=== PATIENT | female | born 1935 | race Caucasian/White ===

== ENCOUNTER 2021-12-29 12:06 | Emergency (ER) | payer MEDICARE, SELFPAY ==
--- NOTE | ~2021-12-29 | XR_ITS ---
EXAMINATION: XR chest 1V portable DATE: 12/29/2021 12:47 INDICATION: Atrial fibrillation TECHNIQUE: frontal view of the chest was obtained. COMPARISON: Chest radiograph dated 08/19/2007 FINDINGS: Cardiomegaly. Diffuse increased interstitial pattern in the bilateral mid and lower lung zones which could represent mild pulmonary edema. Linear atelectasis/scarring in the left midlung zone. No pleura l effusion or pneumothorax. IMPRESSION: 1. Cardiomegaly with mild increased interstitial pattern suggesting mild pulmonary edema. Reviewed, dictated and finalized at location B. IMPRESSION: 1. Cardiomegaly with mild increased interstitial pattern suggesting mild pulmon raymond edema.
[2021-12-29 12:14] VITALS: BP 156/112; PULSE 186; RESP 18; TEMP 36.9; O2SAT 99
[2021-12-29 12:34] LABS: Basophils Absolute Auto 0.1 K/mm3 (0.0-0.1); Basophils Percent Auto 0.6 % (0.2-1.2); Eosinophils Absolute Auto 0.2 K/mm3 (0-0.3); Eosinophils Percent Auto 2.5 % (0-4.4); Hematocrit 50.1 % (37.0-47.0); Hemoglobin 16.7 g/dL (12.0-15.0); Immature Granulocyte Absolute 0.02 K/mm3 (0.00-0.031); Immature Granulocyte Percent A 0.3 % (0-0.5); Lymphocytes Absolute Auto 3.41 K/mm3 (0.9-3.2); Lymphocytes Percent Auto 43.4 % (18.3-44.2); Mean Corpuscular HGB Conc 33.3 g/dl (32-36); Mean Corpuscular Hemoglobin 30.8 pg (26-34); Mean Corpuscular Volume 92.3 fl (80-100); Mean Platelet Volume 9.3 fl (7.4-10.4); Monocytes Absolute Auto 0.6 K/mm3 (0.1-0.6); Neutrophils Absolute Auto 3.5 K/mm3 (1.3-6.7); Neutrophils Percent Auto 45.2 % (45.5-73.1); Platelet Count Result 192 k/mm3 (150-375); Red Blood Count 5.43 M/mm3 (4.2-5.4); White Blood Count 7.9 K/mm3 (4.5-10.0)
[2021-12-29] MEDS: dilTIAZem HCl INJ 25 MG/5 ML VIAL 20 MG IV PUSH (12:41)
[2021-12-29 12:46] VITALS: BP 133/78; PULSE 107
[2021-12-29 12:46] LABS: Alanine Aminotransferase 14 U/L (6-35); Albumin Level 4.6 g/dL (3.5-5.1); Alkaline Phosphatase 83 U/L (38-126); Anion Gap 8 mmol/L (8-16); Aspartate Amino Transferase 26 U/L (14-36); Bilirubin,Total 1.1 mg/dL (0.2-1.3); Blood Urea Nitrogen 15 mg/dL (7-17); Calcium 10.4 mg/dL (8.4-10.2); Carbon Dioxide 24 mmol/L (22-30); Chloride 106 mmol/L (98-107); Estimated CRCL calculation 48 ml/min; Estimated Glomerular Filt Rate > 60; Glucose 145 mg/dL (65-110); Potassium 4.4 mmol/L (3.4-5.0); Sodium 138 mmol/L (137-145)
[2021-12-29] MEDS: dilTIAZem 100 MG/100 ML 100 MG/100 ML BAG 10 MG IV CONT (12:46)
[2021-12-29 12:50] VITALS: BP 133/78; PULSE 75; RESP 17; O2SAT 97
[2021-12-29 13:36] LABS: Magnesium 1.7 mg/dL (1.6-2.3)
--- NOTE | 2021-12-29 13:36 | ED.ARRPALP ---
HPI - Arrhythmia/Palpitations General Chief Complaint: Arrhythmia/Palpitations Stated Complaint: Elevated HR Time Seen by Provider: 12/29/21 12:19 Source: patient, RN notes reviewed and old records reviewed Mode of arrival: ambulatory Limitations: no limitations History of Present Illness HPI narrative: This is an 86 year old female with history of chronic atrial fibrillation, hemorrhagic CVA, chronic kidney disease who presents for evaluation of rapid heart rate. PAtient states she went to get left cataract surgery today, and she was found to be tachycardic and hypertensive. She states she has known atrial fibrillation . She states she feels fine. She denies chest pain, sob, dizziness, nasuea, vomiting. She is upset that she was unable to get her surgery today. She has not seen a forklift picker in years . She reports Dr. Luo was her forklift picker until his office did not except her insurance. Her primary care provider has been monitoring her heart. She takes aspirin. She does not take any other anticoagulation because she states she had a stroke in 2013 on Xarelto. Related Data Home Medications Medication Instructions Recorded Confirmed lancets #50 ea 07/10/19 Allergies Allergy/AdvReac Type Severity Reaction Status Date / Time albuterol Allergy Unknown unknown Verified 12/29/21 12:16 levalbuterol Allergy Unknown RESPIRATORY Verified 12/29/21 12:16 DISTRESS, CARDIAC DYSRHYTHMIAS Review of Systems Review of Systems: All systems reviewed & are unremarkable except as noted in HPI and below Constitutional: Constitutional: Denies chills, Denies fatigue and Denies fever(s) ENT: Denies nasal congestion and Denies sore throat Cardiovascular: Cardiovascular: Denies chest pain and Denies radiating jaw, neck or arm pain Respiratory: Respiratory: Denies chest congestion and Denies cough Gastrointestinal: Gastrointestinal: Denies abdominal pain, Denies bloating, Denies nausea and Denies vomiting Neurologic: Denies dizziness PMFSH Past Medical History Medical History (Updated 12/29/21 @ 17:32 by DARÍO Diaz) CVA (cerebral vascular accident) Hemorrhagic cerebrovascular accident (CVA) Hypothyroidism (acquired) Type 2 diabetes mellitus with renal manifestations, controlled Urinary incontinence Surgical History Surgical History H/O cardiac catheterization H/O thyroidectomy Hx of cholecystectomy Social History Social History Smoking status: Never smoker Second hand tobacco smoke exposure: No Exam Const: General: alert Nutritional Appearance: well nourished Orientation/consciousness: patient oriented x3 HENMT: Head: normal to inspection Throat: posterior oropharynx normal Eyes: Conjunctivae: conjunctivae normal EOM: EOMs intact bilaterally Resp: Effort & Inspection: normal respiratory effort Auscultation: clear to auscultation bilaterally Cardio: Rate: tachycardic Rhythm: abnormal rhythm Heart sounds: no murmurs GI: GI Palp: Yes Soft to palpation, No Tenderness to palpation present (GI), No Guarding due to palpation present (GI) and No Rigid due to palpation Auscultation: normal bowel sounds Back/Spine/Pelvis: Back: no CVA tenderness Skin: General skin exam: normal color Rashes: no rashes Neuro: General: patient oriented x3 and moves all extremities Extrem: General: no pedal edema Psych: Mental Status: mental status grossly normal Course Reevaluation(s) Reevaluation #1: PAtient's HR has improved with diltiazem. I discussed with patient and family that she will be admitted overnight for cardiac evaluation. She is agreeable. I spoke with Kadi Wilkins with heart care [facility] who agrees with consult. I spoke with Patricia ZEPEDA with hospitalist and she accepts to IMU. Date: 12/29/21 Time: 14:30 Vital Signs Vital signs: Vital Sign
[2021-12-29 13:48] LABS: NT Pro B Type Natriuretic Pept 957 pg/mL (5-100); Troponin I < 0.012 ng/mL (0.000-0.034)
[2021-12-29 13:52] VITALS: BP 128/70; PULSE 63
[2021-12-29 14:34] VITALS: BP 120/74; PULSE 60; RESP 10; O2SAT 97
--- NOTE | 2021-12-29 15:06 | PM.IMHP ---
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 Patient reports that she takes carvedilol for rate control and that she recently had this dose increased and she has been compliant with taking her medication daily and did take it this morning. Patient is a prior patient of Dr. Luo to follow for Cardiology, however at 1 point he no longer to current insurance so she has just been following with her primary care physician for management of her cardiac medications. In the emergency room she was evaluated and labs were all unremarkable including magnesium of 1.7 and a negative troponin. She was started on Cardizem drip. She is being admitted to hospitalist service at this time for further evaluation and management. [facility]iology service has been [facility]. At the time of my assessment patient denies any chest pain, dyspnea, palpitations, nausea, vomiting, diarrhea. She appears to be comfortable without any signs of distress. Review of Systems Review of Systems: All systems reviewed & are unremarkable except as noted in HPI and below PMFSH Past Medical History Medical History (Updated 12/29/21 @ 15:43 by DARÍO Diaz) CVA (cerebral vascular accident) Hemorrhagic cerebrovascular accident (CVA) Hypothyroidism (acquired) Type 2 diabetes mellitus with renal manifestations, controlled Urinary incontinence Surgical History Surgical History H/O cardiac catheterization H/O thyroidectomy Hx of cholecystectomy Social History Social History Smoking status: Never smoker Second hand tobacco smoke exposure: No Meds Home Medications and Allergies Home Medications Medication Instructions Recorded Confirmed Type lancets #50 ea 07/10/19 History levothyroxine 100 mcg tablet 100 mcg PO DAILY #90 tabs 01/03/21 Rx oxybutynin chloride 10 mg 10 mg PO DAILY #90 tabs 01/20/21 Rx tablet,extended release 24 hr blood sugar diagnostic #100 ea 03/07/21 Rx lisinopril 10 mg tablet 10 mg PO DAILY #90 tabs 03/14/21 Rx simvastatin 40 mg tablet 40 mg PO DAILY #90 tabs 03/14/21 Rx insulin detemir U-100 100 unit/mL 30 unit (0.3 mL) subcut DAILY #15 07/12/21 Rx (3 mL) subcutaneous pen mL carvedilol 12.5 mg tablet See Rx Instructions .Route 08/11/21 Rx .COMPLEX #180 tabs pen needle, diabetic 31 gauge x #100 ea 10/31/21 Rx 08/31 (BD Ultra-Fine Mini Pen Needle) Allergies Allergy/AdvReac Type Severity Reaction Status Date / Time albuterol Allergy Unknown unknown Verified 12/29/21 12:16 levalbuterol Allergy Unknown RESPIRATORY Verified 12/29/21 12:16 DISTRESS, CARDIAC DYSRHYTHMIAS Vital Signs Vital Signs - 24 hr 12/29/21 12:14 12/29/21 12:46 12/29/21 12:50 Temperature 98.5 F Pulse Rate 186 H 107 H 75 Respiratory Rate 18 17 Blood Pressure 156/112 H 133/78 133/78 Pulse Oximetry 99 97 Oxygen Delivery Room Air 12/29/21 13:52 12/29/21 14:34 Temperature Pulse Rate 63 60 Respiratory Rate 10 L Blood Pressure 128/70 120/74 Pulse Oximetry 97 Oxygen Delivery Exam Const: General: comfortable and no acute distress Other: Sitting up on the stretcher at this time in no acute distress and without any complaints. HENMT: Ears: TM's normal bilaterally General nose exam: Normal nares present Mouth: Yes m
[2021-12-29 15:36] VITALS: BP 125/73; PULSE 62; RESP 14; O2SAT 100
[2021-12-29 15:36] LABS: SARS-CoV-2 RNA PCR Negative
[2021-12-29 15:40] LABS: Hemoglobin A1C 6.4 % (<5.7)
[2021-12-29 16:21] LABS: Glucose Point of Care 185 mg/dl (65-105)
--- NOTE | 2021-12-29 17:21 | PC.NURSE ---
pt expressed to this RN that she does not want to be admitted to the hospital and would like to go home. She states she feels better after the medicine and wants to go home with her . EDP and Hospitalist, Patricia made aware of situation. pt educated on the risks of leaving AMA and the benefits of staying in the Hospital. pt refusing to stay and states she is leaving. pt signed AMA form. educated pt she can always return if she changes her mind and to return if she is having any new or worsening symptoms. IV removed w/ catheter intact.
== END 2021-12-29 17:32 | disposition left against medical advice (07) ==
PROVIDERS: Nurse Practitioner Adult Health; Emergency Provider General Practice
DX: I48.20 Chronic atrial fibrillation, unspecified (principal); E11.22 Type 2 diabetes mellitus with diabetic chronic kidney disease; I12.9 Hypertensive chronic kidney disease with stage 1 through stage 4 chronic kidney disease, or unspecified chronic kidney disease; N18.9 Chronic kidney disease, unspecified; E78.5 Hyperlipidemia, unspecified; K21.9 Gastro-esophageal reflux disease without esophagitis; Z20.822 Contact with and (suspected) exposure to COVID-19; E89.0 Postprocedural hypothyroidism; Z86.73 Personal history of transient ischemic attack (TIA), and cerebral infarction without residual deficits; Z79.4 Long term (current) use of insulin; I51.7 Cardiomegaly; R91.8 Other nonspecific abnormal finding of lung field
CPT/HCPCS: 36415; 71045; 80053; 82948; 83036; 83735; 83880; 84484; 85025; 96365; 96366; 99284; C9803; U0003; U0005

== ENCOUNTER 2023-01-16 14:08 | Outpatient (CLI) | payer MEDICARE, SELFPAY ==
[2023-01-16 18:39] LABS: Basophils Absolute Auto 0.1 K/mm3 (0.0-0.1); Basophils Percent Auto 0.6 % (0.2-1.2); Eosinophils Absolute Auto 0.3 K/mm3 (0-0.3); Eosinophils Percent Auto 2.3 % (0-4.4); Hematocrit 48.1 % (37.0-47.0); Hemoglobin 16.2 g/dL (12.0-15.0); Immature Granulocyte Absolute 0.03 K/mm3 (0.00-0.031); Immature Granulocyte Percent A 0.3 % (0-0.5); Lymphocytes Absolute Auto 3.48 K/mm3 (0.9-3.2); Lymphocytes Percent Auto 29.4 % (18.3-44.2); Mean Corpuscular HGB Conc 33.7 g/dl (32-36); Mean Corpuscular Hemoglobin 31.2 pg (26-34); Mean Corpuscular Volume 92.7 fl (80-100); Mean Platelet Volume 9.8 fl (7.4-10.4); Monocytes Absolute Auto 0.9 K/mm3 (0.1-0.6); Monocytes Percent Auto 7.9 % (2.6-8.5); Neutrophils Absolute Auto 7.1 K/mm3 (1.3-6.7); Neutrophils Percent Auto 59.5 % (45.5-73.1); Platelet Count Result 193 k/mm3 (150-375); Red Blood Count 5.19 M/mm3 (4.2-5.4); Red Cell Distribution Width 13.2 % (11.5-14.5); White Blood Count 11.9 K/mm3 (4.5-10.0)
[2023-01-16 18:41] LABS: Alanine Aminotransferase 18 U/L (6-35); Albumin Level 4.3 g/dL (3.5-5.1); Alkaline Phosphatase 74 U/L (38-126); Anion Gap 7 mmol/L (8-16); Aspartate Amino Transferase 36 U/L (14-36); Bilirubin,Total 1.2 mg/dL (0.2-1.3); Blood Urea Nitrogen 15 mg/dL (7-17); Calcium 10.5 mg/dL (8.4-10.2); Carbon Dioxide 26 mmol/L (22-30); Chloride 102 mmol/L (98-107); Cholesterol 128 mg/dL (0-200); Estimated Glomerular Filt Rate 59; Glucose 89 mg/dL (65-110); HDL Direct 39 mg/dL; Potassium 4.5 mmol/L (3.4-5.0); Sodium 135 mmol/L (137-145); Triglycerides 105 mg/dL (<150)
[2023-01-16 18:52] LABS: LDL Cholesterol Direct 57 mg/dL
[2023-01-16 19:41] LABS: Hemoglobin A1C 6.6 % (<5.7)
[2023-01-16 19:41] LABS: Creatinine Urine 73.9 mg/dL
[2023-01-16 19:46] LABS: MALB Creatinine Ratio 84.2 mg/g (0-30); Microalbumin Urine Random 62.2 mg/L (0-16.7)
== END 2023-01-16 14:09 | disposition home or self-care (01) ==
LOC: ANHGOSHLAB 14:09
PROVIDERS: PCP Family Medicine; Visit Provider Family Medicine
DX: Z13.228 Encounter for screening for other metabolic disorders (principal); R53.83 Other fatigue; E11.9 Type 2 diabetes mellitus without complications; Z13.29 Encounter for screening for other suspected endocrine disorder; Z13.220 Encounter for screening for lipoid disorders
CPT/HCPCS: 36415; 80053; 80061; 82043; 83036; 84443; 85025